=== PATIENT | female | born 1940 | race Caucasian/White ===

== ENCOUNTER 2020-02-09 22:04 | Emergency (ER) | payer OTHER ==
[2020-02-09] MEDS ORDERED: IPRATROPIUM BROM 0.5MG/2.5ML ONE (23:08)
[2020-02-09] MEDS ORDERED: ACETAMINOPHEN 500 MG TAB ONE (23:09)
[2020-02-09 23:10] LABS: Basophils % 0.5 % (0-1.3); Hematocrit 35.2 % (36.0-45.0); MPV 11.8 fL (7.6-11.3); RBC Red Blood Cell Count 4.23 M/uL (3.86-4.86)
[2020-02-09] MEDS ORDERED: ALBUTEROL 2.5 MG/3 ML NEB SOL ONE (23:10)
[2020-02-09 23:12] LABS: Protime INR 1.23
[2020-02-09 23:28] LABS: ALT/SGPT 17 U/L (12-78); AST/SGOT 19 U/L (15-37); Alkaline Phosphatase 86 U/L (45-117); BUN Blood Urea Nitrogen 14 mg/dL (7-18); Bicarbonate 25 mmol/L (21-32); Bilirubin Direct 0.3 mg/dL (0-0.2); Bilirubin Total 0.8 mg/dL (0.2-1.0); Glucose Level 111 mg/dL (74-106); Magnesium 1.7 mg/dL (1.8-2.4); NT PRO-BNP 360 pg/mL (<450); Potassium 3.5 mmol/L (3.5-5.1); Protein, Total 8.1 g/dL (6.4-8.2); Sodium Level 136 mmol/L (136-145); Troponin (Emerg Dept Use Only) < 0.02 ng/mL (0.0-0.045)
[2020-02-10] MEDS ORDERED: LEVALBUTEROL 1.25 MG/3 ML NEB ONE (00:28)
[2020-02-10] MEDS ORDERED: CEFTRIAXONE/SWI 1gm 1 GM/10 ML SYR ONE (00:28)
[2020-02-10] MEDS ORDERED: MAGNESIUM SULFATE 1 gm IVPB 1 GM/100 ML BAG IV ONE (00:28)
[2020-02-10 01:33] LABS: Blood Morphology Comment NOTED (NOT SEEN); Ovalocytes 2+; Platelet Estimate ADEQ; Teardrop Cell 2+
--- NOTE | 2020-02-10 01:57 | ER ---
Nurse's Notes [facility] Name: Charleen Alberto Age: 79 yrs Sex: Female : 1940 Arrival Date: 02/09/2020 Time: 22:05 Bed 15 Private MD: Diagnosis: Cough;Shortness of breath Presentation: 02/08 22:11 Chief complaint: Patient states: she has had a cough about 2 weeks, she started running ah temp of 101.6 today and having some shortness of breath. She states that she took 2 benadryl at 2044. Coronavirus screen: The patient has NOT traveled to a country currently being monitored by the [facility] within the last 14 days. The patient has NOT had contact with any known and/or suspected case of coronavirus. Ebola Screen: No symptoms or risks identified at this time. Initial Sepsis Screen: Does the patient meet any 2 criteria? HR > 90 bpm. No. Patient's initial sepsis screen is negative. Does the patient have a suspected source of infection? Yes: No. Patient's initial sepsis screen is negative. Risk Assessment: Do you want to hurt yourself or someone else? Patient reports no desire to harm self or others. 22:11 Method Of Arrival: Ambulatory 22:11 Acuity: PARAM 3 22:30 Onset of symptoms is unknown. Triage Assessment: 23:30 Respiratory: Onset: The symptoms/episode began/occurred at an unknown time. the patient reports symptoms have resolved. Historical: - Allergies: 22:16 No Known Allergies; - Home Meds: 22:21 Theracran oral oral [Active]; lisinopril 5 mg oral tab once daily [Active]; nitrofurantoin macrocrystal 50 mg Oral cap once daily [Active]; aspirin 325 mg Oral tab once daily [Active]; prasugrel oral oral [Active]; - PMHx: 22:16 Myocardial infarction; Hypertension; - PSHx: 22:16 Heart stents; Tonsillectomy; - Immunization history:: Flu vaccine is not up to date. Patient has never been vaccinated. - Social history:: Smoking status: Patient denies any tobacco usage or history of. Patient/guardian denies using alcohol, street drugs. Screenin:30 Abuse screen: Denies threats or abuse. Denies injuries from another. Nutritional screening: No deficits noted. Tuberculosis screening: No symptoms or risk factors identified. Fall Risk None identified. Assessment: 22:30 General: Appears in no apparent distress. Behavior is calm, cooperative, appropriate wh for age. Pain: Denies pain. Neuro: Level of Consciousness is awake, alert, obeys commands, Oriented to person, place, time, situation, Appropriate for age. Cardiovascular: Heart tones S1 S2 Rhythm is sinus tachycardia. Respiratory: Reports shortness of breath cough that is Airway is patent Respiratory effort is even, unlabored, Respiratory pattern is regular, symmetrical, Breath sounds with wheezes. GI: Abdomen is flat, non-distended. : No signs and/or symptoms were reported regarding the genitourinary system. EENT: Throat is pink. Derm: Skin is intact, is healthy with good turgor, Skin is pink, warm \T\ dry. normal. Musculoskeletal: Circulation, motion, and sensation intact. 02/09 00:05 Reassessment: Patient appears in no apparent distress at this time. No changes from previously documented assessment. Patient and/or family updated on plan of care and expected duration. Pain level reassessed. Patient is alert, oriented x 3, equal unlabored respirations, skin warm/dry/pink. 01:30 Reassessment: Patient appears in no apparent distress at this time. No changes from previously documented assessment. Patient and/or family updated on plan of care and expected duration. Pain level reassessed. Patient is alert, oriented x 3, equal unlabored respirations, skin warm/dry/pink. Patient states feeling better. Patient states symptoms have improved. Vital Signs: 02/08 22:11 BP 119 / 95; Pulse 119; Resp 28; Temp 100.0; Pulse Ox 94% ; Weight 56.7 kg; Height 5 ah ft. 2 in. (157.48 cm); Pain 0/10; 02/09 00:00 BP 135 / 53; Pulse 118; Resp 18; Temp 99.0; Pulse Ox 94% on R/A; wh 01:00 BP 114 / 57; Pulse 103; Resp 18; Pulse Ox 96% on R/A; wh 02:00 BP 126 / 57; Pulse 101; Resp 18; Pulse Ox 95% on R/A; 02/08 22:11 Body Mass Index 22.86 (56.70 kg, 157.48 cm) ED Course: 02/08 22:05 Patient arrived in ED. ag3 22:15 Triage completed. 22:17 Arm band placed on left wrist. 22:21 Arden Desai NP is PHCP. pm1 22:21 Julián Mckeon MD is Attending Physician. pm1 22:26 Gilbert Cano is Primary Nurse. 22:30 Patient has correct armband on for positive identification. Placed in gown. Bed in low wh position. Call light in reach. Side rails up X 1. case monitor on. Pulse ox on. NIBP on. 22:51 XRAY Chest (1 view) In Process Unspecified. EDMS 02/09 02:19 No provider procedures requiring assistance completed. IV discontinued, intact, bleeding controlled, No redness/swelling at site. Administered Medications: 02/08 23:13 Drug: Albuterol - atroVENT (3:1) (2.5 mg - 0.5 mg) 3 ml Route: Nebulizer; 02/09 00:32 Follow up: Response: No adverse reaction; Wheezing diminished 02/08 23:14 Drug: Tylenol 1000 mg Route: PO; 02/09 00:32 Follow up: Response: No adverse reaction; Temperature is decreased 00:26 Drug: Xopenex 1.25 mg Route: Inhalation; 00:28 Drug: Rocephin 1 grams Route: IV; Rate: calculated rate; Site: right forearm; 02:19 Follow up: Response: No adverse reaction; IV Status: Completed infusion 00:31 Drug: Magnesium Sulfate 1 grams Route: IVPB; Infused Over: 1 hrs; Site: right forearm; 02:18 Follow up: Response: No adverse reaction; IV Status: Completed infusion 02:06 Drug: predniSONE 60 mg Route: PO; rr5 02:19 Follow up: Response: No adverse reaction Outcome: 01:55 Discharge ordered by . pm1 02:12 Discharged to home ambulatory, with family. 02:12 Condition: stable 02:12 Discharge instructions given to patient, family, Instructed on discharge instructions, follow up and referral plans. medication usage, POC Demonstrated understanding of instructions, follow-up care, medications, POC Prescriptions given X 4. 02:23 Patient left the ED. Signatures: Dispatcher [employer] EDMS Arden Desai NP [employer]TE [employer] pm1 Gilbert Cano [place] ag3 Scott Ferrer RN RN 5 Idania Brown RN RN Corrections: (The following items were deleted from the chart) 02/08 22:23 22:11 Chief complaint: Patient states: she has had a cough about 2 weeks, she started running temp of 101.6 today and having some shortness of breath 22:24 22:11 BP 119 / 95; Pulse 119bpm; Pulse Ox 94%; Temp 100.0F; 56.7 kg; Height 5 ft. 2 in.; BMI: 22.8; Pain 0/10; ah 02/09 00:16 00:00 BP 135 / 53; Pulse 118bpm; Resp 18bpm; Pulse Ox 94% [facility]
--- NOTE | 2020-02-10 01:57 | EDPHYS ---
Physician Documentation [facility] Name: Charleen Alberto Age: 79 yrs Sex: Female : 1940 Arrival Date: 02/09/2020 Time: 22:05 Bed 15 Private MD: ED Physician Julián Mckeon HPI: 02/08 22:39 This 79 yrs old Female presents to ER via Ambulatory with complaints of pm1 Cough, Shortness Of Breath. 22:39 The patient or guardian reports cough, with no sputum. Onset: The symptoms/episode pm1 began/occurred 2 week(s) ago. Severity of symptoms: in the emergency department the symptoms are actually worse, fever onset today. Modifying factors: The symptoms are alleviated by nothing, the symptoms are aggravated by nothing. Associated signs and symptoms: Pertinent positives: fever, Pertinent negatives: chest pain, nausea, sore throat, vomiting. The patient has not experienced similar symptoms in the past. Patient was sent to the ER by her PCP from [place] for COVID 19 testing. Patient without exposure to patient who tested positive. Historical: - Allergies: 22:16 No Known Allergies; - Home Meds: 22:21 Theracran oral oral [Active]; lisinopril 5 mg oral tab once daily [Active]; nitrofurantoin macrocrystal 50 mg Oral cap once daily [Active]; aspirin 325 mg Oral tab once daily [Active]; prasugrel oral oral [Active]; - PMHx: 22:16 Myocardial infarction; Hypertension; - PSHx: 22:16 Heart stents; Tonsillectomy; - Immunization history:: Flu vaccine is not up to date. Patient has never been vaccinated. - Social history:: Smoking status: Patient denies any tobacco usage or history of. Patient/guardian denies using alcohol, street drugs. ROS: 22:39 Constitutional: Negative for fever, chills, and weight loss, ENT: Negative for injury, pm1 pain, and discharge, Neck: Negative for injury, pain, and swelling, Cardiovascular: Negative for chest pain, palpitations, and edema. 22:39 Abdomen/GI: Negative for abdominal pain, nausea, vomiting, diarrhea, and constipation, Back: Negative for injury and pain, MS/Extremity: Negative for injury and deformity, Skin: Negative for injury, rash, and discoloration, Neuro: Negative for headache, weakness, numbness, tingling, and seizure. 22:39 Respiratory: Positive for cough, shortness of breath. Exam: 22:39 Constitutional: This is a well developed, well nourished patient who is awake, alert, pm1 and in no acute distress. Head/Face: Normocephalic, atraumatic. Neck: Trachea midline, no thyromegaly or masses palpated, and no cervical lymphadenopathy. Supple, full range of motion without nuchal rigidity, or vertebral point tenderness. No Meningismus. Chest/axilla: Normal chest wall appearance and motion. Nontender with no deformity. No lesions are appreciated. Cardiovascular: Regular rate and rhythm with a normal S1 and S2. No gallops, murmurs, or rubs. Normal PMI, no JVD. No pulse deficits. 22:39 Abdomen/GI: Soft, non-tender, with normal bowel sounds. No distension or tympany. No guarding or rebound. No evidence of tenderness throughout. Back: No spinal tenderness. No costovertebral tenderness. Full range of motion. Skin: Warm, dry with normal turgor. Normal color with no rashes, no lesions, and no evidence of cellulitis. MS/ Extremity: Pulses equal, no cyanosis. Neurovascular intact. Full, normal range of motion. 22:39 Respiratory: the patient does not display signs of respiratory distress, Respirations: normal, Breath sounds: bronchial sounds, are heard diffusely. 22:39 Neuro: Exam negative for acute changes, Orientation: is normal, Motor: is normal, moves all fours. Vital Signs: 22:11 BP 119 / 95; Pulse 119; Resp 28; Temp 100.0; Pulse Ox 94% ; Weight 56.7 kg; Height 5 ah ft. 2 in. (157.48 cm); Pain 0/10; 02/09 00:00 BP 135 / 53; Pulse 118; Resp 18; Temp 99.0; Pulse Ox 94% on R/A; wh 01:00 BP 114 / 57; Pulse 103; Resp 18; Pulse Ox 96% on R/A; wh 02:00 BP 126 / 57; Pulse 101; Resp 18; Pulse Ox 95% on R/A; wh 02/08 22:11 Body Mass Index 22.86 (56.70 kg, 157.48 cm) MDM: 02/08 22:22 Patient medically screened. pm1 02/09 00:23 ED course: Patient's PCP from [place] sent her here for COVID 19 testing. Patient pm1 without exposure to rodriguez virus positive patient. According to current algorithm, patient does not currently warrant testing. Discussed with patient and family to contact [facility] for further questions and screening regarding COVID 19. 01:54 Data reviewed: vital signs. Counseling: I had a detailed discussion with the patient pm1 and/or guardian regarding: the historical points, exam findings, and any diagnostic results supporting the discharge/admit diagnosis, lab results, radiology results, the need for outpatient follow up, to return to the emergency department if symptoms worsen or persist or if there are any questions or concerns that arise at home. 01:58 ED course: Reviewed Chest X-ray with attending and no apparent pneumonia present. pm1 Patient with clinical presentation of bronchitis. Nonproductive cough for the past 2 weeks that appears to be transitioning to a productive cough based on auscultation. Patient symptoms improved with breathing treatments. Will discharge the patient home with steroids, inhaler, antibiotics, and cough medications with mucolytic. 02/08 22:31 Order name: Flu; Complete Time: 23:46 pm1 02/08 22:31 Order name: Strep; Complete Time: 23:46 pm1 02/08 22:31 Order name: Basic Metabolic Panel; Complete Time: 23:46 pm1 02/08 22:31 Order name: CBC with Diff; Complete Time: 01:34 pm1 02/08 22:31 Order name: LFT's; Complete Time: 23:46 pm1 02/08 22:31 Order name: Magnesium; Complete Time: 23:46 pm1 02/08 22:31 Order name: NT PRO-BNP; Complete Time: 23:46 pm1 02/08 22:31 Order name: PT-INR; Complete Time: 23:46 pm1 02/08 22:31 Order name: Troponin (emerg Dept Use Only); Complete Time: 23:46 pm1 02/08 22:31 Order name: XRAY Chest (1 view) pm1 02/08 23:35 Order name: Throat Culture EDMS 02/08 23:44 Order name: Manual Differential; Complete Time: 01:34 EDMS 02/08 22:31 Order name: EKG; Complete Time: 22:33 pm1 02/08 22:31 Order name: Cardiac monitoring; Complete Time: 23:04 pm1 02/08 22:31 Order name: EKG - Nurse/Tech; Complete Time: 23:04 pm1 02/08 22:31 Order name: IV Saline Lock; Complete Time: 23:04 pm1 02/08 22:31 Order name: Labs collected and sent; Complete Time: 23:04 pm1 02/08 22:31 Order name: O2 Per Protocol; Complete Time: 23:04 pm1 02/08 22:31 Order name: O2 Sat Monitoring; Complete Time: 23:04 pm1 Administered Medications: 02/08 23:13 Drug: Albuterol - atroVENT (3:1) (2.5 mg - 0.5 mg) 3 ml Route: Nebulizer; 02/09 00:32 Follow up: Response: No adverse reaction; Wheezing diminished 02/08 23:14 Drug: Tylenol 1000 mg Route: PO; 02/09 00:32 Follow up: Response: No adverse reaction; Temperature is decreased 00:26 Drug: Xopenex 1.25 mg Route: Inhalation; 00:28 Drug: Rocephin 1 grams Route: IV; Rate: calculated rate; Site: right forearm; 02:19 Follow up: Response: No adverse reaction; IV Status: Completed infusion 00:31 Drug: Magnesium Sulfate 1 grams Route: IVPB; Infused Over: 1 hrs; Site: right forearm; wh 02:18 Follow up: Response: No adverse reaction; IV Status: Completed infusion 02:06 Drug: predniSONE 60 mg Route: PO; rr5 02:19 Follow up: Response: No adverse reaction Disposition: 14:01 Co-signature as Attending Physician, Julián Mckeon MD I agree with the assessment and 4 plan of care. Disposition: 02/10/20 01:55 Discharged to Home. Impression: Cough, Shortness of breath. - Condition is Stable. - Discharge Instructions: Shortness of Breath, Cough, Adult. - Prescriptions for Zithromax Z- Yonathan 250 mg Oral Tablet - take 1 tablet by ORAL route as directed for 5 days Day 1 - take two (2) tablets one time. Day 2, 3, 4 , 5 take one (1) tablet once daily.; 6 tablet. Medrol (Yonathan) 4 mg Oral Tablets, Dose Pack - take 1 tablet by ORAL route as directed - follow package instructions; 1 packet. Albuterol Sulfate 90 mcg/actuation - inhale 1-2 puff by INHALATION route every 4-6 hours; 1 Inhaler. Guaifenesin AC 10- 100 mg/5 mL Oral Liquid - take 10 milliliter by ORAL route every 4 hours As needed; 240 milliliter. - Medication Reconciliation Form, Thank You Letter, Antibiotic Education, Prescription Opioid Use form. - Follow up: Emergency Department; When: As needed; Reason: Worsening of condition. Follow up: Private Physician; When: 2 - 3 days; Reason: Recheck today's complaints, Continuance of care, Re-evaluation by your physician. - Problem is new. - Symptoms have improved. Signatures: Dispatcher [employer] [facility] Arden Desai, PRODUCT SAFETY EXPERT PRODUCT SAFETY EXPERT pm1 Gilbert Cano Julián Mckeon MD MD tw4 Scott Ferrer, RN RN 5 Idania Brown RN RN Corrections: (The following items were deleted from the chart) 02/08 22:40 22:33 Chest Pa And Lat (2 Views)+[email or web address] ordered. [facility] 02/09 02:23 01:55 02/10/2020 01:55 Discharged to Home. Impression: Cough; Shortness of breath. Condition is Stable. Forms are Medication Reconciliation Form, Thank You Letter, Antibiotic Education, Prescription Opioid Use. Follow up: Emergency Department; When: As needed; Reason: Worsening of condition. Follow up: Private Physician; When: 2 - 3 days; Reason: Recheck today's complaints, Continuance of care, Re-evaluation by your physician. Problem is new. Symptoms have improved. pm1
[2020-02-10] MEDS ORDERED: predniSONE 20 MG TAB ONE (02:04)
[2020-02-10 02:31] VITALS: TEMP 99
[2020-02-10 02:34] VITALS: BP 126/57; O2SAT 95
--- NOTE | 2020-02-10 06:55 | EKG ---
Test Date: 2020-02-09 Test Time: 22:39:18 Teaching Young: DILEEP MEASUREMENT RESULTS: Intervals: Rate: 110 LA: 138 QRSD: 116 QT: 376 QTc: 508 [place]: P: 67 LA: 138 QRS: -36 T: 0 INTERPRETIVE STATEMENTS: Sinus tachycardia with occasional premature ventricular complexes Left axis deviation Right bundle branch block Abnormal ECG Compared to ECG 08/09/2011 17:33:35 Ventricular premature complex(es) now present Right bundle-branch block now present Sinus rhythm no longer present ST (T wave) deviation no longer present Electronically Signed On 02-10-20 06:54:42 CDT by Noe Brown
--- NOTE | 2020-02-10 07:09 | RAD REPORT ---
EXAM DESCRIPTION: RAD - Chest Single View - 02/09/2020 10:51 pm CLINICAL HISTORY: Fever;SOB COMPARISON: AP chest July 2011 TECHNIQUE: AP portable chest image was obtained 02/09/2020 10:51 pm . FINDINGS: No focal mass or consolidation. Granuloma in the left lung field unchanged. Interstitial p attern overall is not substantially different over this long interval. Heart and vasculature are norm al. No measurable pleural effusion and no pneumothorax. No acute bony abnormality seen. No acute aort ic findings suspected. IMPRESSION: No acute cardiopulmonary process.
== END 2020-02-10 02:23 | disposition home or self-care (01) ==
LOC: ER 22:04
DX: R05 Cough (principal); R06.02 Shortness of breath; Z95.5 Presence of coronary angioplasty implant and graft; I25.2 Old myocardial infarction; I10 Essential (primary) hypertension
CPT/HCPCS: 96365; 93005; 87070; 85025; 80048; 36415; 83735; 85610; 80076; 87081; 84484; 83880; 87804 ×2; 71045; 94640; 99285; J7512; J3475; J0696

== ENCOUNTER 2022-01-07 19:48 | Observation (INO) | payer OTHER ==
[2022-01-07 21:20] LABS: Hematocrit 34.9 % (36.0-45.0); Lymphocytes % 6.9 % (15.3-44.8); MPV 11.6 fL (7.6-11.3); Protime INR 1.2; RBC Red Blood Cell Count 4.25 M/uL (3.86-4.86)
[2022-01-07] MEDS ORDERED: CEFTRIAXONE 1000 MG/VIAL ONE (21:37)
[2022-01-07] MEDS ORDERED: NA CHLORIDE 0.9% 1,000 ML ONE (21:37)
[2022-01-07 21:40] LABS: Albumin 2.7 g/dL (3.4-5.0); Bilirubin Direct 0.2 mg/dL (0-0.2); Bilirubin Total 0.5 mg/dL (0.2-1.0); Magnesium 1.7 mg/dL (1.8-2.4); Potassium 3.3 mmol/L (3.5-5.1); Protein, Total 7.8 g/dL (6.4-8.2); Troponin High Sensitivity 20.5 pg/mL (<58.9)
--- NOTE | 2022-01-07 21:48 | RAD REPORT ---
EXAM DESCRIPTION: RAD - Chest Single View - 01/07/2022 9:25 pm CLINICAL HISTORY: Cough;Dyspnea COMPARISON: Chest Single View dated 02/09/2020; CHEST SINGLE VIEW dated 08/09/2011 FINDINGS: Lines: None. Lungs: Patchy basilar airspace disease, left greater than right. Pleural: No significant pleural effusions or pneumothorax. Cardiac: The heart size is within normal limits. Bones: No acute fractures. Other: IMPRESSION: Basilar predominant airspace disease bilaterally concerning for multifocal pneumonia.
[2022-01-07] MEDS ORDERED: AZITHROMYCIN 500 MG INJ IVPB ONE (21:49)
[2022-01-07] MEDS ORDERED: NA CHLORIDE 0.9% 250 ML ONE (21:49)
[2022-01-07] MEDS ORDERED: ACETAMINOPHEN 325 MG TABLET ONE (22:01)
[2022-01-07] MEDS ORDERED: POTASSIUM 25 MEQ EFFERV TAB ONE (22:01)
--- NOTE | 2022-01-07 22:03 | EDPHYS ---
Physician Documentation [facility] Name: Charleen Alberto Age: 81 yrs Sex: Female : 1940 Arrival Date: 01/07/2022 Time: 19:52 Bed 13 Private MD: ED Physician Joseph Simmons HPI: 01/07 21:55 This 81 yrs old Female presents to ER via Ambulatory with complaints of manan Cough, Decreased Appetite. 21:55 The patient or guardian reports cough, difficulty breathing, flu symptoms, arthralgias, manan low-grade fever, myalgias. Onset: The symptoms/episode began/occurred 5 day(s) ago. Severity of symptoms: At their worst the symptoms were mild, in the emergency department the symptoms are actually worse, markedly. Modifying factors: The symptoms are alleviated by nothing, the symptoms are aggravated by nothing. The patient has experienced similar episodes in the past, a few times. Historical: - Allergies: 20:51 No Known Allergies; bb - Home Meds: 20:51 nitrofurantoin macrocrystal 50 mg Oral cap once daily [Active]; lisinopril 5 mg Oral bb tab once daily [Active]; prasugrel 10 mg oral tab 1 tab once daily [Active]; aspirin 325 mg Oral tab 164 mg once daily [Active]; Theracran Oral [Active]; urinary tract complex [Active]; - PMHx: 20:51 Hypertension; Myocardial infarction; bb - PSHx: 20:51 heart cath with stents; bb - Immunization history:: Adult Immunizations up to date, Moderna x 3. - Social history:: Smoking status: Patient denies any tobacco usage or history of. ROS: 21:58 Constitutional: Negative for fever, chills, and weight loss, Eyes: Negative for injury, manan pain, redness, and discharge, ENT: Negative for injury, pain, and discharge, Neck: Negative for injury, pain, and swelling, Cardiovascular: Negative for chest pain, palpitations, and edema, Abdomen/GI: Negative for abdominal pain, nausea, vomiting, diarrhea, and constipation, Back: Negative for injury and pain, : Negative for injury, bleeding, discharge, and swelling, MS/Extremity: Negative for injury and deformity, Skin: Negative for injury, rash, and discoloration, Neuro: Negative for headache, weakness, numbness, tingling, and seizure, Psych: Negative for depression, anxiety, suicide ideation, homicidal ideation, and hallucinations, Allergy/Immunology: Negative for hives, rash, and allergies, Endocrine: Negative for neck swelling, polydipsia, polyuria, polyphagia, and marked weight changes, Hematologic/Lymphatic: Negative for swollen nodes, abnormal bleeding, and unusual bruising. 21:58 Constitutional: Positive for body aches, chills, fatigue, fever, malaise. 21:58 Respiratory: Positive for cough, shortness of breath, at rest. Exam: 21:58 Constitutional: This is a well developed, well nourished patient who is awake, alert, manan and in no acute distress. Head/Face: Normocephalic, atraumatic. Eyes: Pupils equal round and reactive to light, extra-ocular motions intact. Lids and lashes normal. Conjunctiva and sclera are non-icteric and not injected. Cornea within normal limits. Periorbital areas with no swelling, redness, or edema. ENT: Nares patent. No nasal discharge, no septal abnormalities noted. Tympanic membranes are normal and external auditory canals are clear. Oropharynx with no redness, swelling, or masses, exudates, or evidence of obstruction, uvula midline. Mucous membranes moist. Neck: Trachea midline, no thyromegaly or masses palpated, and no cervical lymphadenopathy. Supple, full range of motion without nuchal rigidity, or vertebral point tenderness. No Meningismus. Chest/axilla: Normal chest wall appearance and motion. Nontender with no deformity. No lesions are appreciated. Abdomen/GI: Soft, non-tender, with normal bowel sounds. No distension or tympany. No guarding or rebound. No evidence of tenderness throughout. Back: No spinal tenderness. No costovertebral tenderness. Full range of motion. Female : Normal external genitalia. Skin: Warm, dry with normal turgor. Normal color with no rashes, no lesions, and no evidence of cellulitis. MS/ Extremity: Pulses equal, no cyanosis. Neurovascular intact. Full, normal range of motion. Neuro: Awake and alert, GCS 15, oriented to person, place, time, and situation. Cranial nerves II-XII grossly intact. Motor strength 5/5 in all extremities. Sensory grossly intact. Cerebellar exam normal. Normal gait. Psych: Awake, alert, with orientation to person, place and time. Behavior, mood, and affect are within normal limits. 21:58 Cardiovascular: Rate: tachycardic, actual rate is 110 bpm, Rhythm: regular, Pulses: Pulses are 4+ in bilateral radial, brachial, femoral, popliteal, posterior tibial and and dorsalis pedis arteries.. Heart sounds: normal, Edema: is not appreciated, JVD: is not appreciated. 21:58 ECG was reviewed by the Attending Physician. Vital Signs: 20:47 BP 128 / 63; Pulse 110; Resp 24 S; Temp 100.1(O); Pulse Ox 93% on R/A; Weight 53.52 kg bb (R); Height 5 ft. 2 in. (157.48 cm) (R); Pain 4/10; 22:08 BP 129 / 66; Pulse 102; Resp 22 S; Pulse Ox 95% on R/A; ll3 23:30 BP 98 / 49; Pulse 81; Resp 28; Pulse Ox 95% on R/A; ll3 01/08 00:34 BP 92 / 50; Pulse 81; Resp 22; Pulse Ox 96% on R/A; ll3 01/07 20:47 Body Mass Index 21.58 (53.52 kg, 157.48 cm) bb MDM: 01/07 20:55 Patient medically screened. [facility] 22:00 Differential diagnosis: viral Infection, bacterial infection, URI, bronchitis, manan pneumonia UTI. Differential Diagnosis: Bronchitis Influenza Upper Respiratory Infection Otitis Media Viral Syndrome Pneumonia. Data reviewed: vital signs, nurses notes, lab test result(s), EKG, radiologic studies, plain films. Data interpreted: desk monitor: rate is 110 beats/min, rhythm is regular, Pulse oximetry: on room air is 93 %. Test interpretation: by ED physician or midlevel provider: ECG, plain radiologic studies. Counseling: I had a detailed discussion with the patient and/or guardian regarding: the historical points, exam findings, and any diagnostic results supporting the discharge/admit diagnosis, lab results, radiology results, the need for further work-up and treatment in the hospital. 01/07 20:58 Order name: Basic Metabolic Panel; Complete Time: 21:52 [facility] 01/07 20:58 Order name: CBC with Diff; Complete Time: 22:41 [facility] 01/07 20:58 Order name: LFT's; Complete Time: 21:52 [facility] 01/07 20:58 Order name: Magnesium; Complete Time: 21:52 [facility] 01/07 20:58 Order name: NT PRO-BNP; Complete Time: 21:52 [facility] 01/07 20:58 Order name: PT-INR; Complete Time: 21:52 [facility] 01/07 20:58 Order name: Troponin HS; Complete Time: 21:52 [facility] 01/07 20:58 Order name: XRAY Chest (1 view); Complete Time: 21:52 [facility] 01/07 20:58 Order name: Blood Culture Adult (2) [facility] 01/07 20:58 Order name: Lactate; Complete Time: 22:41 [facility] 01/07 20:58 Order name: Procalcitonin; Complete Time: 22:41 [facility] 01/07 20:58 Order name: COVID-19/FLU A+B/RSV (Document "Date of Onset" if Symptomatic); Complete manan Time: 22:41 01/07 22:05 Order name: CBC Smear Scan; Complete Time: 22:41 [facility] 01/07 20:58 Order name: EKG; Complete Time: 20:59 [facility] 01/07 20:58 Order name: Cardiac monitoring; Complete Time: 21:28 [facility] 01/07 20:58 Order name: EKG - Nurse/Tech; Complete Time: 21:28 [facility] 01/07 20:58 Order name: IV Saline Lock; Complete Time: 21:28 [facility] 01/07 20:58 Order name: Labs collected and sent; Complete Time: 21:28 [facility] 01/07 20:58 Order name: O2 Per Protocol; Complete Time: 21:28 [facility] 01/07 20:58 Order name: O2 Sat Monitoring; Complete Time: 23:49 [facility] EC:58 Rate is 101 beats/min. Rhythm is regular. QRS [place] is Normal. QRS interval is normal. [facility] QT interval is normal. No Q waves. T waves are Normal. No ST changes noted. Clinical impression: Sinus tachycardia. Interpreted by me. Reviewed by me. Administered Medications: 21:42 Drug: NS 0.9% 500 ml Route: IV; Rate: bolus; Site: left antecubital; bb 21:42 Drug: Rocephin (cefTRIAXone) 1 grams Route: IV; Rate: per protocol; Site: left bb antecubital; 01/08 00:26 Follow up: Response: No adverse reaction; IV Status: Completed infusion; IV Intake: [id number] 01/07 21:54 Drug: Zithromax (azithromycin) 500 mg Route: IVPB; Infused Over: 1 hrs; Site: left antecubital; 01/08 00:30 Follow up: Response: No adverse reaction; IV Status: Completed infusion; IV Intake: ll3 250ml 01/07 22:00 Drug: NS 0.9% 1000 ml Route: IV; Rate: 1 bolus; Site: left antecubital; 3 22:06 Drug: Tylenol 650 mg Route: PO; 3 01/08 00:26 Follow up: Response: No adverse reaction [facility] 01/07 22:06 Drug: Potassium Effervescent Tablet 25 mEq Route: PO; 3 01/08 00:26 Follow up: Response: No adverse reaction [facility] 01/07 23:15 Drug: Pepcid (famotidine) 20 mg Route: IVP; Site: left antecubital; [facility] 01/08 00:26 Follow up: Response: No adverse reaction [facility] 01/07 23:15 Drug: Magnesium Sulfate 1 grams Route: IVPB; Infused Over: 1 hrs; Site: left [facility] antecubital; 01/08 01:28 Follow up: Response: No adverse reaction; IV Status: Completed infusion; IV Intake: ll3 100ml 01/07 23:50 Drug: NS 0.9% 1000 ml Route: IV; Rate: 125 ml/hr; Site: left antecubital; 3 Disposition Summary: 01/07/22 22:02 Hospitalization Ordered Hospitalization Status: Observation manan Provider: Goldy Mckeon cha Location: Telemetry/[facility] (Inpatient) manan Condition: Fair manan Problem: new manan Symptoms: have improved manan Bed/Room Type: Standard manan Room Assignment: 217(01/07/22 22:49) Diagnosis - Fever, unspecified manan - Hypoxemia manan - Hypokalemia manan - Hypomagnesemia manan - Pneumonia due to other specified bacteria - bilateral mulitfocal manan Forms: - Medication Reconciliation Form manan - SBAR form manan Signatures: Dispatcher [employer] EDJosette Dunlap RN RN mw Anderson, Corey, MD MD cha Ballard, Brenda, RN RN bb Loubet, Lynsea, RN RN ll3 Corrections: (The following items were deleted from the chart) 22:49 22:02 manan lujan
--- NOTE | 2022-01-07 22:03 | ER ---
Nurse's Notes [facility] Name: Charleen Alberto Age: 81 yrs Sex: Female : 1940 Arrival Date: 01/07/2022 Time: 19:52 Bed 13 Private MD: Diagnosis: Fever, unspecified;Hypoxemia;Hypokalemia;Hypomagnesemia;Pneumonia due to other specified bacteria-bilateral mulitfocal Presentation: 01/07 20:47 Chief complaint: Patient's son or daughter states: pt has been coughing "non-stop" x 2 bb weeks, decreased appetite, thinks she has been running fever has woken up several times sweating, she took 2 home test but they were negative. Coronavirus screen: cough unrelated to allergies, fever, Client presents with at least one sign or symptom that may indicate coronavirus-19. Standard/surgical mask placed on the client. Ebola Screen: No symptoms or risks identified at this time. Initial Sepsis Screen: Does the patient meet any 2 criteria? RR > 20 per min. HR > 90 bpm. Yes Does the patient have a suspected source of infection? Yes: Productive cough/pneumonia. Risk Assessment: Do you want to hurt yourself or someone else? Patient reports no desire to harm self or others. Onset of symptoms was November 2021. 20:47 Method Of Arrival: Ambulatory 20:47 Acuity: PARAM 3 bb Triage Assessment: 01/08 00:36 General: Appears uncomfortable, Behavior is calm, cooperative. Pain: Denies pain. ll3 Neuro: Level of Consciousness is awake, alert, obeys commands, Oriented to person, place, time, situation. Cardiovascular: Patient's skin is warm and dry. Respiratory: Parent/caregiver reports the patient having cough that is persistent. Historical: - Allergies: 01/07 20:51 No Known Allergies; bb - Home Meds: 20:51 nitrofurantoin macrocrystal 50 mg Oral cap once daily [Active]; lisinopril 5 mg Oral bb tab once daily [Active]; prasugrel 10 mg oral tab 1 tab once daily [Active]; aspirin 325 mg Oral tab 164 mg once daily [Active]; Theracran Oral [Active]; urinary tract complex [Active]; - PMHx: 20:51 Hypertension; Myocardial infarction; bb - PSHx: 20:51 heart cath with stents; bb - Immunization history:: Adult Immunizations up to date, Moderna x 3. - Social history:: Smoking status: Patient denies any tobacco usage or history of. Screenin/13 00:34 Abuse screen: Denies threats or abuse. Nutritional screening: No deficits noted. ll3 Tuberculosis screening: No symptoms or risk factors identified. Fall Risk No fall in past 12 months (0 pts). No secondary diagnosis (0 pts). IV access (20 points). Ambulatory Aid- None/Bed Rest/Nurse Assist (0 pts). Mental Status- Oriented to own ability (0 pts). Total Vick Fall Scale indicates No Risk (0-24 pts). Sepsis Screening: SIRS - Systemic Inflammatory Response Syndrome: 2 or more indicates positive screen: [heart rate greater than 90 beats per minute] [respiratory rate is greater than 20 breaths per minute] Provider has been notified and patient further screened based on infection criteria. Assessment: 00:34 Reassessment: Patient and/or family updated on plan of care and expected duration. Pain ll3 level reassessed. Patient is alert, oriented x 3, equal unlabored respirations, skin warm/dry/pink. Vital Signs: 01/07 20:47 BP 128 / 63; Pulse 110; Resp 24 S; Temp 100.1(O); Pulse Ox 93% on R/A; Weight 53.52 kg bb (R); Height 5 ft. 2 in. (157.48 cm) (R); Pain 4/10; 22:08 BP 129 / 66; Pulse 102; Resp 22 S; Pulse Ox 95% on R/A; ll3 23:30 BP 98 / 49; Pulse 81; Resp 28; Pulse Ox 95% on R/A; ll3 01/08 00:34 BP 92 / 50; Pulse 81; Resp 22; Pulse Ox 96% on R/A; ll3 01/07 20:47 Body Mass Index 21.58 (53.52 kg, 157.48 cm) bb ED Course: 01/07 19:52 Patient arrived in ED. 20:51 Triage completed. bb 20:51 Arm band placed on Patient placed in an exam room, on a stretcher, on awake overnight monitor, bb on pulse oximetry. Family accompanied patient. 20:55 Joseph Simmons MD is Attending Physician. [facility] 21:05 Initial lab(s) drawn, by mo, sent to lab. First set of blood cultures drawn by me. lt3 Inserted saline lock: 22 gauge in left antecubital area, using aseptic technique. 21:13 Second set of blood cultures drawn by lab staff. lt3 21:25 XRAY Chest (1 view) In Process Unspecified. EDMS 21:28 EKG done, by ED staff, reviewed by Joseph Simmons MD. lt3 21:28 COVID-19/FLU A+B/RSV (Document "Date of Onset" if Symptomatic) Sent. lt3 21:28 Basic Metabolic Panel Sent. lt3 21:29 LFT's Sent. lt3 21:29 Magnesium Sent. lt3 21:29 NT PRO-BNP Sent. lt3 21:29 Troponin HS Sent. lt3 21:38 COVID-19/FLU A+B/RSV (Document "Date of Onset" if Symptomatic) Sent. lt3 22:01 Goldy Mckeon MD is Hospitalizing Provider. [facility] 22:03 Gallito Grey RN is Primary Nurse. ll3 02 01:29 Patient has correct armband on for positive identification. Placed in gown. Bed in low ll3 position. Call light in reach. Side rails up X 1. 01:29 No provider procedures requiring assistance completed. Patient admitted, IV remains in ll3 place. Administered Medications: 01/07 21:42 Drug: NS 0.9% 500 ml Route: IV; Rate: bolus; Site: left antecubital; 21:42 Drug: Rocephin (cefTRIAXone) 1 grams Route: IV; Rate: per protocol; Site: left bb antecubital; 01/08 00:26 Follow up: Response: No adverse reaction; IV Status: Completed infusion; IV Intake: [id number] 02 21:54 Drug: Zithromax (azithromycin) 500 mg Route: IVPB; Infused Over: 1 hrs; Site: left bb antecubital; 01/08 00:30 Follow up: Response: No adverse reaction; IV Status: Completed infusion; IV Intake: ll3 250ml 01/07 22:00 Drug: NS 0.9% 1000 ml Route: IV; Rate: 1 bolus; Site: left antecubital; ll3 22:06 Drug: Tylenol 650 mg Route: PO; ll3 02/13 00:26 Follow up: Response: No adverse reaction 3 01/07 22:06 Drug: Potassium Effervescent Tablet 25 mEq Route: PO; ll3 01/08 00:26 Follow up: Response: No adverse reaction 3 01/07 23:15 Drug: Pepcid (famotidine) 20 mg Route: IVP; Site: left antecubital; 3 01/08 00:26 Follow up: Response: No adverse reaction [facility] 01/07 23:15 Drug: Magnesium Sulfate 1 grams Route: IVPB; Infused Over: 1 hrs; Site: left ll3 antecubital; 01/08 01:28 Follow up: Response: No adverse reaction; IV Status: Completed infusion; IV Intake: ll3 100ml 01/07 23:50 Drug: NS 0.9% 1000 ml Route: IV; Rate: 125 ml/hr; Site: left antecubital; 3 Intake: 01/08 00:26 IV: 50ml; Total: 50ml. ll3 00:30 IV: 250ml; Total: 300ml. ll3 01:28 IV: 100ml; Total: 400ml. ll3 Outcome: 01/07 22:02 Decision to Hospitalize by Provider. [facility] 01/08 01:29 Admitted to Med/surg accompanied by tech, via stretcher, room 217, with chart, Report ll3 called to MAXIMO Connelly Condition: stable Instructed on the need for admit. 01:30 Patient left the ED. ll3 Signatures: Dispatcher [employer] EDJoseph Werner MD MD cha Ballard, Brenda, RN RN bb Marsh, Wendy wm Loubet, Lynsea, RN RN ll3 Teagan Garcia 3
[2022-01-07 22:05] LABS: Anisocytosis 1+; Blood Morphology Comment NOTED (NOT SEEN); Platelet Estimate ADEQ; Platelets, Giant MOD; White Blood Cell Scan OK (OK)
[2022-01-07 22:06] LABS: Burr Cells 1+; Elliptocytes 1+; Poikilocytosis 2+; Teardrop Cell 1+
[2022-01-07 22:15] LABS: SARS-COV-2 RT PCR NEGATIVE (NEGATIVE)
[2022-01-07] MEDS ORDERED: FAMOTIDINE 20 MG/2 ML VIAL IV ONE (23:09)
[2022-01-07] MEDS ORDERED: MAGNESIUM SULFATE 1 gm IVPB 1 GM/100 ML BAG IV ONE (23:09)
[2022-01-08] MEDS ORDERED: NA CHLORIDE 0.9% 1,000 ML ONE (00:06)
[2022-01-08 01:39] VITALS: O2SAT 96
[2022-01-08] MEDS ORDERED: NS KCL 20MEQ 20 MEQ/1,000 ML BAG IV SCH (01:41)
[2022-01-08] MEDS ORDERED: IPRATROPIUM BROM 0.5MG/2.5ML NEB PRN (01:41)
[2022-01-08] MEDS ORDERED: ONDANSETRON 4 MG/2 ML VIAL IV PRN (01:41)
[2022-01-08] MEDS ORDERED: ALBUTEROL 2.5 MG/3 ML NEB SOL NEB PRN (01:41)
[2022-01-08] MEDS ORDERED: MORPHINE 2 MG/ML SYR IV PRN (01:41)
[2022-01-08] MEDS ORDERED: ACETAMINOPHEN 500 MG TAB PO PRN (01:41)
[2022-01-08 02:34] LABS: Absolute Lymphocytes (CBC) 1.3 K/uL (0.7-4.9); Hematocrit 31.9 % (36.0-45.0); Lymphocytes % 10.1 % (15.3-44.8); MPV 12.3 fL (7.6-11.3); RBC Red Blood Cell Count 3.85 M/uL (3.86-4.86)
[2022-01-08 02:57] LABS: Potassium 3.7 mmol/L (3.5-5.1)
[2022-01-08 02:59] LABS: Anisocytosis 1+; Blood Morphology Comment NOTED (NOT SEEN); Platelet Estimate ADEQ; Platelets, Giant MODERATE; White Blood Cell Scan OK (OK)
[2022-01-08 03:00] LABS: Burr Cells 1+; Elliptocytes 2+; Hypochromasia 1+; Poikilocytosis 2+; Teardrop Cell 1+
[2022-01-08 03:11] VITALS: BMI 21.5
[2022-01-08 05:11] VITALS: TEMP 97.3
[2022-01-08] MEDS ORDERED: CEFTRIAXONE 1000 MG/VIAL ONE (07:30)
[2022-01-08] MEDS ORDERED: NA CHLORIDE 0.9% 50 ML ONE (07:46)
--- NOTE | 2022-01-08 08:14 | RAD REPORT ---
EXAM DESCRIPTION: RAD - Chest Single View - 01/08/2022 6:55 am CLINICAL HISTORY: Chest Pain COMPARISON: Portable chest 01/07/2022 TECHNIQUE: AP portable chest image was obtained 01/08/2022 6:55 am . FINDINGS: Normal lung volumes seen. Basilar dominant bilateral interstitial and airspace opacificati on, most likely bilateral pneumonia, has not changed since prior imaging. No new or progressive failu re or volume overload. Heart and vasculature are normal. No measurable pleural effusion and no pneumothorax. No acute bony abnormality seen. No acute aortic findings suspected. IMPRESSION: Basilar predominant interstitial and airspace opacification, favored to be multifocal pn eumonia, stable from prior imaging.
[2022-01-08] MEDS ORDERED: lisinopriL 5 MG TAB PO SCH (09:00)
[2022-01-08] MEDS ORDERED: AZITHROMYCIN IV 500 MG in NA CHLORIDE 0.9% 250 ML IVPB SCH (09:00)
[2022-01-08] MEDS ORDERED: CEFTRIAXONE 1,000 MG in NA CHLORIDE 0.9% 50 ML IVPB SCH (09:00)
[2022-01-08] MEDS ORDERED: PRASUGREL (EFFIENT) 10 MG TAB PO SCH (09:00)
[2022-01-08] MEDS ORDERED: ASPIRIN EC 81 MG TAB PO SCH (09:00)
[2022-01-08] MEDS ORDERED: MAGNESIUM OXIDE 400 MG TAB PO SCH (09:00)
[2022-01-08] MEDS ORDERED: PNEUMOCOCCAL VACCINE 0.5 ML IMVAC ONE (09:00)
[2022-01-08] MEDS ORDERED: INFLUENZA VACCINE (for 6+ mo) 0.5 ML DOSE IMVAC ONE (09:00)
--- NOTE | 2022-01-08 09:14 | P.SSS ---
Patient History Date of Service: 01/08/22 Reason for admission: COUGH, FEVER FOR 2 WEEKS History of Present Illness: DANY IS REASONABLY HEALTHY WOMAN WHO HAD COUGH AND FEVER FOR 2 WEEKS. STARTED WITH THROAT PAIN. SHE IS LOT BETTER AFTER ABX LAST NIGHT AND WANTS TO GO HOME. Allergies No Known Allergies Allergy (Unverified 01/08/22 08:48) Home medications list reviewed: Yes Home Medications: Aspirin [Aspirin EC 81 MG] 1 tab PO DAILY 01/08/22 D-Methorphan Hb/Prometh HCl [Promethazine-Dm Syrup] 5 ml PO QID #120 ml 01/08/22 Lisinopril [Zestril] 1 tab PO DAILY 01/08/22 Prasugrel HCl 1 tab PO DAILY 01/08/22 levoFLOXacin [Levaquin*] 500 mg PO DAILY #14 tab 01/08/22 - Past Medical/Surgical History Has patient received pneumonia vaccine in the past: No -: mycardial infraction -: hypertension - Social History Smoking Status: Never smoker Alcohol use: No CD- Drugs: No Caffeine use: No Place of Residence: Home Review of Systems 10-point ROS is otherwise unremarkable Respiratory: Cough Physical Examination - Vital Signs Temperature: 97.3 F Blood Pressure: 108/53 Pulse: 79 Respirations: 18 Pulse Ox (%): 92 - Physical Exam General: Alert, In no apparent distress HEENT: Atraumatic, PERRLA, Mucous membr. moist/pink, EOMI, Sclerae nonicteric Neck: Supple, 2+ carotid pulse no bruit, No LAD, Without JVD or thyroid abnormality Respiratory: Clear to auscultation bilaterally, Normal air movement Cardiovascular: Regular rate/rhythm, Normal S1 S2 Gastrointestinal: Normal bowel sounds, No tenderness Musculoskeletal: No tenderness Integumentary: No rashes Neurological: Normal gait, Normal speech, Normal strength at 5/5 x4 extr, Normal tone, Normal affect Lymphatics: No axilla or inguinal lymphadenopathy - Studies Laboratory Data (last 24 hrs) 01/07/22 21:05: PT 13.8 H, INR 1.20 01/07/22 21:05: WBC 14.10 H, Hgb 11.1 L, Hct 34.9 L, Plt Count 120 L 01/07/22 21:05: Sodium 136, Potassium 3.3 L, BUN 16, Creatinine 1.04, Glucose 107 H, Magnesium 1.7 L, Total Bilirubin 0.5, AST 32, ALT 31, Alkaline Ph osphatase 84 Microbiology Data (last 24 hrs): 01/07/22 21:13 Blood - Blood Anaerobic Blood Culture - Final - Diagnosis (Problem(s)) (1) Bacterial pneumonia Current Visit: Yes Status: Acute Plan: LEVAQUIN SHOULD WORK FOR THIS ON OUTPATIENT BASIS. I HAVE FOUND THAT CEFTIN AND ZPAK DON'T WORK FOR BACTERIAL PNEUMONIA REPORTED. SHE IS STABLE AND VERY COMFORTABLE TO GO HOME. - Disposition Disposition: ROUTINE DISCHARGE Condition: FAIR
[2022-01-08 09:44] VITALS: BP 114/69
== END 2022-01-08 11:24 | disposition home or self-care (01) ==
LOC: ER 19:48 → ERHOLD 22:53 → OBSVTOIN 22:53 → INTOOBSV 22:53 → 2ND 01-08 00:36
PROVIDERS: ADMIT Internal Medicine; ATTEND Internal Medicine
DX: J15.9 Unspecified bacterial pneumonia (principal); R09.02 Hypoxemia; E87.6 Hypokalemia; E83.42 Hypomagnesemia; I10 Essential (primary) hypertension; I25.2 Old myocardial infarction; Z20.822 Contact with and (suspected) exposure to COVID-19; Z79.82 Long term (current) use of aspirin; Z95.5 Presence of coronary angioplasty implant and graft
CPT/HCPCS: 96365; 96367; 93005; 87040 ×2; 85025 ×2; 80048 ×2; 36415; 83735; 85610; 80076; 83605; 84484; 84145; 83880 ×2; 0241U; 71045 ×2; 94760; 96375; 99285; 96366; J0456 ×2; J3475; J7050 ×2; J7030 ×2; J3480; G0378 ×2

== ENCOUNTER 2022-01-12 12:28 | Emergency (ER) | payer OTHER ==
[2022-01-12] MEDS ORDERED: LEVALBUTEROL 1.25 MG/3 ML NEB ONE (13:16)
[2022-01-12 13:38] LABS: Absolute Lymphocytes (CBC) 1.7 K/uL (0.7-4.9); Hematocrit 38.2 % (36.0-45.0); Lymphocytes % 15.1 % (15.3-44.8); MPV 10.6 fL (7.6-11.3)
[2022-01-12 13:39] LABS: Platelet Estimate ADEQ; Protime INR 1.12; White Blood Cell Scan OK (OK)
[2022-01-12 13:40] LABS: Blood Morphology Comment NOT SEEN (NOT SEEN); Platelets, Giant PRESENT
[2022-01-12 13:45] LABS: Albumin 2.7 g/dL (3.4-5.0); Bilirubin Direct 0.2 mg/dL (0-0.2); Bilirubin Total 0.5 mg/dL (0.2-1.0); Magnesium 1.6 mg/dL (1.8-2.4); Potassium 3.8 mmol/L (3.5-5.1); Troponin High Sensitivity 9.5 pg/mL (<58.9)
--- NOTE | 2022-01-12 13:51 | RAD REPORT ---
EXAM DESCRIPTION: RAD - Chest Single View - 01/12/2022 1:39 pm CLINICAL HISTORY: SOB COMPARISON: Portable January 08 TECHNIQUE: AP portable chest image was obtained 01/12/2022 1:39 pm . FINDINGS: Patchy areas of airspace opacification are present in the mid and lower lung cummings. Lung base findings have improved. Chest findings have not fully resolved. No new or progressive lung field finding. Failure and volume overload are not suspected. Heart and va sculature are normal. No measurable pleural effusion and no pneumothorax. No acute bony abnormality s een. No acute aortic findings suspected. IMPRESSION: Partial clearing of suspected bilateral lower lung field pneumonia. No new or progressive finding since January 08.
[2022-01-12 14:00] LABS: SARS-COV-2 RT PCR NEGATIVE (NEGATIVE)
--- NOTE | 2022-01-12 15:27 | EDPHYS ---
Physician Documentation [facility] Name: Charleen Alberto Age: 81 yrs Sex: Female : 1940 Arrival Date: 01/12/2022 Time: 12:31 Bed 8 Private MD: Goldy Mckeon V ED Physician Karlo Mayo HPI: 01/12 13:05 This 81 yrs old Female presents to ER via Ambulatory with complaints of Breathing cp Difficulty. 13:05 The patient has shortness of breath at rest. Onset: The symptoms/episode began/occurred cp this morning. Duration: The symptoms are continuous. Associated signs and symptoms: Pertinent positives: non-productive cough, Pertinent negatives: chest pain, fever, vomiting. Severity of symptoms: in the emergency department the symptoms are unchanged despite home interventions. Patient reports recent discharge from this hospital 3 days ago after being admitted for pneumonia. Patient currently taking prescribed Levaquin. Patient reports shortness of breath this morning. Historical: - PMHx: 12:55 Hypertension; Myocardial infarction; ap3 - PSHx: 12:55 heart cath with stents; ap3 - Immunization history:: Adult Immunizations up to date, Client reports receiving the 2nd dose of the Covid vaccine. - Social history:: Smoking status: unknown. ROS: 13:10 Constitutional: Negative for body aches, chills, fever, poor PO intake. cp 13:10 Eyes: Negative for injury, pain, redness, and discharge. cp 13:10 ENT: Negative for ear pain, sore throat, difficulty swallowing, difficulty handling secretions. 13:10 Cardiovascular: Negative for chest pain, edema, palpitations. 13:10 Respiratory: Positive for cough, shortness of breath, at rest. Negative for wheezing. 13:10 Abdomen/GI: Negative for abdominal pain, nausea, vomiting, and diarrhea. 13:10 Neuro: Negative for altered mental status, headache, syncope, weakness. 13:10 All other systems are negative. Exam: 12:50 ECG was reviewed by the Attending Physician. cp 13:15 Constitutional: The patient appears in no acute distress, alert, awake, cp non-diaphoretic, non-toxic, well developed, well nourished. 13:15 Head/Face: Normocephalic, atraumatic. cp 13:15 Eyes: Periorbital structures: appear normal, Conjunctiva: normal, no exudate, no injection, Sclera: no appreciated abnormality, Lids and lashes: appear normal, bilaterally. 13:15 ENT: External ear(s): are unremarkable, Nose: is normal, Mouth: Lips: moist, Oral mucosa: moist, Posterior pharynx: Airway: no evidence of obstruction, patent. 13:15 Neck: ROM/movement: is normal, is supple, without pain, no range of motions limitations. 13:15 Chest/axilla: Inspection: normal. 13:15 Cardiovascular: Rate: tachycardic, Rhythm: regular, Edema: is not appreciated, JVD: is not appreciated. 13:15 Respiratory: the patient does not display signs of respiratory distress, Respirations: normal, no use of accessory muscles, no retractions, labored breathing, is not present, Breath sounds: bronchial sounds, that are mild, are heard diffusely, stridor, is not appreciated, wheezing: is not appreciated. 13:15 Abdomen/GI: Inspection: abdomen appears normal, Palpation: abdomen is soft and non-tender, in all quadrants. 13:15 Back: pain, is absent, ROM is normal. 13:15 Neuro: Orientation: to person, place \\T\\ time. Mentation: is normal, Motor: moves all fours, strength is normal, Sensation: is normal. Vital Signs: 12:30 BP 152 / 84; Pulse 102; Resp 26; Pulse Ox 96% on R/A; Weight 49.9 kg; Height 5 ft. 2 ap3 in. (157.48 cm); 12:41 BP 154 / 84; Pulse 100; Resp 20; Pulse Ox 98% ; Pain 0/10; cb5 15:20 BP 150 / 77; Pulse 86; Resp 18; Pulse Ox 100% ; Pain 0/10; cb5 12:30 Body Mass Index 20.12 (49.90 kg, 157.48 cm) ap3 MDM: 12:55 Patient medically screened. cp 13:30 Differential diagnosis: CHF exacerbation, Myocardial Infarction Pneumothorax pulmonary cp edema, Pulmonary Embolism Sepsis Unstable Angina. 15:27 Data reviewed: vital signs, nurses notes, lab test result(s), EKG, radiologic studies, cp plain films. 15:27 Data interpreted: laboratory monitor: rate is 86 beats/min, rhythm is normal sinus rhythm, cp Pulse oximetry: on room air is 100 %. Interpretation: normal. Test interpretation: by ED physician or midlevel provider: ECG, plain radiologic studies. Counseling: I had a detailed discussion with the patient and/or guardian regarding: the historical points, exam findings, and any diagnostic results supporting the discharge/admit diagnosis, lab results, radiology results, to return to the emergency department if symptoms worsen or persist or if there are any questions or concerns that arise at home. 01/12 13:00 Order name: Glucose, Ancillary Testing EDIN 01/12 13:01 Order name: Basic Metabolic Panel 01/12 13:01 Order name: CBC with Diff; Complete Time: 13:57 01/12 13:57 Interpretation: Normal except: ELZA% 79.2; LYM% 15.1; MN% 3.2; NEUT A 8.7. 01/12 13:01 Order name: LFT's 01/12 13:01 Order name: Magnesium cp 01/12 13:01 Order name: NT PRO-BNP; Complete Time: 13:57 01/12 15:22 Interpretation: Reviewed. 01/12 13:01 Order name: PT-INR; Complete Time: 13:57 cp 01/12 13:01 Order name: Troponin HS; Complete Time: 13:57 cp 01/12 13:01 Order name: Procalcitonin; Complete Time: 14:43 cp 01/12 14:43 Interpretation: Reviewed. 01/12 13:01 Order name: Lactate; Complete Time: 13:57 01/12 13:01 Order name: Blood Culture Adult (2) 01/12 13:01 Order name: COVID-19/FLU A+B (Document "Date of Onset" if Symptomatic); Complete Time: cp 14:43 01/12 13:02 Order name: Basic Metabolic Panel; Complete Time: 13:57 [facility] 01/12 13:01 Order name: XRAY Chest (1 view); Complete Time: 13:57 cp 01/12 13:01 Order name: EKG; Complete Time: 13:02 cp 01/12 13:01 Order name: Cardiac monitoring; Complete Time: 13:01 cp 01/12 13:01 Order name: EKG - Nurse/Tech; Complete Time: 13:01 cp 01/12 13:01 Order name: IV Saline Lock; Complete Time: 13:02 cp 01/12 13:01 Order name: Labs collected and sent; Complete Time: 13:02 cp 01/12 13:01 Order name: O2 Per Protocol; Complete Time: 13:03 cp 01/12 13:01 Order name: O2 Sat Monitoring; Complete Time: 13:03 cp 01/12 13:02 Order name: Liver (Hepatic) Function; Complete Time: 13:57 EDMS 01/12 13:02 Order name: Magnesium; Complete Time: 13:57 EDMS 01/12 13:39 Order name: CBC Smear Scan; Complete Time: 13:57 EDMS 01/12 15:05 Order name: Misc. Order: ambulate with pulse ox cp 01/12 15:26 Order name: INCENTIVE SPIROMETRY cp EC:50 Rate is 96 beats/min. Rhythm is regular. RI interval is normal. QRS interval is cp prolonged at 112 msec. QT interval is normal. T waves are Inverted in leads III, aVF, aVR. Interpreted by me. Reviewed by me. Administered Medications: 13:15 Drug: Xopenex (levalbuterol) (3) 1.25 mg Route: Inhalation; cb5 Disposition Summary: 01/12/22 15:27 Discharge Ordered Location: Home cp Problem: new cp Symptoms: have improved cp Condition: Stable cp Diagnosis - Shortness of breath cp - Pneumonia, unspecified organism cp Followup: cp - With: Goldy Mckeon MD - When: 1 - 2 days - Reason: Recheck today's complaints Discharge Instructions: - Discharge Summary Sheet cp - Community-Acquired Pneumonia, Adult cp - Shortness of Breath, Adult cp - How to Use an Incentive Spirometer cp - Aspirin and Your Heart cp - Form - Incentive Spirometer Record cp Forms: - Medication Reconciliation Form cp - Thank You Letter cp - Antibiotic Education cp - Prescription Opioid Use cp Prescriptions: - Albuterol Sulfate 2.5 mg /3 mL (0.083 %) Inhalation Solution for Nebulization - inhale 1 unit by NEBULIZATION route every 8 hours As needed; 1 box; Refills: 0, cp Product Selection Permitted Addendum: 01/14/2022 00:00 Co-signature as Attending Physician, Karlo Mayo MD I agree with the assessment and k dr plan of care. Signatures: Dispatcher [employer] Karlo Helms MD MD kdr Joseph Tristan PA PA cp Prokisch, Amanda, RN RN ap3 Sophia Guajardo, RN RN cb5
--- NOTE | 2022-01-12 15:27 | ER ---
Nurse's Notes [facility] Name: Charleen Alberto Age: 81 yrs Sex: Female : 1940 Arrival Date: 01/12/2022 Time: 12:31 Bed 8 Private MD: Goldy Mckeon V Diagnosis: Shortness of breath;Pneumonia, unspecified organism Presentation: 01/12 12:30 Chief complaint: Patient's son or daughter states: she went to check on her mother this ap3 morning, and the mother appeared to be having a hard time breathing. Patient states she feels like she can't breath. Patient taken directly to ER room to complete triage. 12:30 Coronavirus screen: shortness of breath. Ebola Screen: No symptoms or risks identified ap3 at this time. Initial Sepsis Screen: Does the patient meet any 2 criteria? RR > 20 per min. HR > 90 bpm. Yes Does the patient have a suspected source of infection? Yes: Productive cough/pneumonia. Risk Assessment: Do you want to hurt yourself or someone else? Patient reports no desire to harm self or others. Onset of symptoms was January 12, 2022. 12:30 Method Of Arrival: Ambulatory ap3 12:30 Acuity: PARAM 2 ap3 Triage Assessment: 12:55 General: Appears distressed, Behavior is anxious. Pain: Denies pain. Neuro: Level of ap3 Consciousness is awake, alert, obeys commands, Oriented to person, place, time, situation. Cardiovascular: Patient's skin is warm and dry. Respiratory: Reports shortness of breath air hunger labored breathing Airway is patent Respiratory effort is even, labored, Respiratory pattern is hyperventilation Onset: The symptoms/episode began/occurred gradually, the patient has moderate shortness of breath. Derm: Skin is diaphoretic. Historical: - PMHx: 12:55 Hypertension; Myocardial infarction; ap3 - PSHx: 12:55 heart cath with stents; ap3 - Immunization history:: Adult Immunizations up to date, Client reports receiving the 2nd dose of the Covid vaccine. - Social history:: Smoking status: unknown. Screenin:58 Abuse screen: Denies threats or abuse. Nutritional screening: No deficits noted. ap3 Tuberculosis screening: No symptoms or risk factors identified. 12:59 Fall Risk None identified. cb5 Assessment: 12:50 General: Appears comfortable, slender, well groomed, Behavior is calm, cooperative, cb5 appropriate for age. Pain: Complains of pain in back Pain currently is 4 out of 10 on a pain scale. Neuro: No deficits noted. Level of Consciousness is awake, alert, obeys commands, Oriented to person, place, time, situation, Appropriate for age. Cardiovascular: Heart tones S1 S2 Rhythm is sinus rhythm. Respiratory: Airway is patent Respiratory effort is even, unlabored, Breath sounds with wheezes. GI: Patient currently denies. : Denies. Derm: No deficits noted. Musculoskeletal: No deficits noted. 13:49 Reassessment: Patient and/or family updated on plan of care and expected duration. Pain cb5 level reassessed. 15:17 Reassessment: Informed Joseph, P.A. after ambulating patient in hallway pts 02 sats are cb5 97%. Vital Signs: 12:30 BP 152 / 84; Pulse 102; Resp 26; Pulse Ox 96% on R/A; Weight 49.9 kg; Height 5 ft. 2 ap3 in. (157.48 cm); 12:41 BP 154 / 84; Pulse 100; Resp 20; Pulse Ox 98% ; Pain 0/10; cb5 15:20 BP 150 / 77; Pulse 86; Resp 18; Pulse Ox 100% ; Pain 0/10; cb5 12:30 Body Mass Index 20.12 (49.90 kg, 157.48 cm) ap3 ED Course: 12:31 Patient arrived in ED. mr 12:32 Goldy Mckeon MD is Private Physician. mr 12:46 Sophia Guajardo, MAXIMO is Primary Nurse. cb5 12:48 Joseph Tristan PA is PHCP. cp 12:48 Karlo Mayo MD is Attending Physician. cp 12:55 Triage completed. ap3 12:58 Arm band placed on right wrist. EKG completed in triage. Results shown to MD. ap3 12:58 Patient has correct armband on for positive identification. Placed in gown. Bed in low ap3 position. Call light in reach. Side rails up X2. Adult w/ patient. telemetry monitor on. Pulse ox on. NIBP on. 12:59 No provider procedures requiring assistance completed. cb5 13:00 Glucose, Ancillary Testing Sent. cb5 13:02 Basic Metabolic Panel Sent. cb5 13:03 LFT's Sent. cb5 13:03 Magnesium Sent. cb5 13:03 CBC with Diff Sent. cb5 13:03 NT PRO-BNP Sent. cb5 13:03 PT-INR Sent. cb5 13:03 Troponin HS Sent. cb5 13:04 Procalcitonin Sent. cb5 13:04 Magnesium Sent. cb5 13:04 Basic Metabolic Panel Sent. cb5 13:10 COVID-19/FLU A+B (Document "Date of Onset" if Symptomatic) Sent. cb5 13:11 Lactate Sent. cb5 13:11 Blood Culture Adult (2) Sent. cb5 13:11 Liver (Hepatic) Function Sent. cb5 13:23 First set of blood cultures drawn Second set of blood cultures drawn by me. cb5 13:39 XRAY Chest (1 view) In Process Unspecified. EDMS 13:49 COVID-19/FLU A+B (Document "Date of Onset" if Symptomatic) Sent. cb5 13:50 Blood Culture Adult (2) Sent. cb5 13:50 Procalcitonin Sent. cb5 15:26 Goldy Mckeon MD is Referral Physician. cp Administered Medications: 13:15 Drug: Xopenex (levalbuterol) (3) 1.25 mg Route: Inhalation; cb5 Outcome: 15:27 Discharge ordered by MD. cp 15:50 Patient left the ED. 5 Signatures: Dispatcher [employer] EDDE Maricel Robles Joseph Song PA PA cp Martinez, Maria 5 Adore Marie RN RN ap3 Sophia Guajardo, MAXIMO RN cb5 Corrections: (The following items were deleted from the chart) 13:49 13:25 General: cb5 cb5
[2022-01-12 16:28] VITALS: BP 150/77; O2SAT 100
--- NOTE | 2022-01-13 13:07 | EKG ---
Test Date: 2022-01-12 Test Time: 12:43:57 Senior Process Engineer: [employer]A MEASUREMENT RESULTS: Intervals: Rate: 96 NH: 138 QRSD: 112 QT: 390 QTc: 492 [place]: P: 66 NH: 138 QRS: -47 T: 11 INTERPRETIVE STATEMENTS: Normal sinus rhythm Possible Left atrial enlargement Right bundle branch block Left anterior fascicular block Bifascicular block Abnormal ECG Compared to ECG 01/07/2022 21:21:21 Left anterior fascicular block now present Bifascicular block now present Sinus tachycardia no longer present Electronically Signed On 01-13-22 13:03:14 SADDLE CUTTER by Aamir Marcelino
== END 2022-01-12 15:50 | disposition home or self-care (01) ==
LOC: ER 12:28
DX: J18.9 Pneumonia, unspecified organism (principal); I10 Essential (primary) hypertension; I25.2 Old myocardial infarction; Z23 Encounter for immunization
CPT/HCPCS: 93005; 87040 ×2; 85025; 80048; 36415; 83735; 87205; 85610; 82947; 80076; 83605; 84484; 84145; 83880; 0240U; 71045; 99284